=== PATIENT | male | born 1980 | race African-American/Black ===

== ENCOUNTER → 2018-08-29 | Emergency (ER) | payer SELFPAY ==
[~2018-08-29] MED LIST: Calcium Gluc 4.6 MEQ/10 ML (100 MG/ML) ONE; Sodium Chloride 0.9% 100 ML ONE
[2018-08-29 15:03] LABS: Anion Gap 21 mmol/L (10-20); BUN (Urea Nitrogen) 19 mg/dL (8.9-20.6); Calc. Creatinine Clearance 0 mL/min (70-130); Carbon Dioxide 25 mmol/L (22-29); Chloride 102 mmol/L (98-107); Estimated GFR-MDRD 60; Glucose 87 mg/dL (70-105); Magnesium 1.8 mg/dL (1.6-2.6); Potassium 3.6 mmol/L (3.5-5.1); Sodium 144 mmol/L (136-145)
[2018-08-29 15:12] LABS: Calcium 5.3 mg/dL (7.8-10.44)
[2018-08-29 15:40] LABS: ALT (SGPT) 41 U/L (8-55); AST (SGOT) 60 U/L (5-34); Albumin 4.5 g/dL (3.5-5.0); Alkaline Phosphatase 59 U/L (40-150); Bilirubin, Direct 0.3 mg/dL (0.1-0.3); Bilirubin, Total 0.8 mg/dL (0.2-1.2); Protein, Total 8.1 g/dL (6.0-8.3)
== END ==
LOC: NAV ERS 13:12
DX: E83.51 Hypocalcemia (principal); F17.210 Nicotine dependence, cigarettes, uncomplicated; Z79.899 Other long term (current) drug therapy
CPT/HCPCS: 80048; 80076; 83735; 93005; 96365; J7050